=== PATIENT | female | born 1970 | race Caucasian/White ===

== ENCOUNTER 2019-10-07 04:24 | Emergency (ER) | payer OTHER ==
[2019-10-07] MEDS ORDERED: ONDANSETRON ODT 8 MG TAB SL ONE (04:34)
[2019-10-07] MEDS ORDERED: ALUM & MAG HYDROX-SIMETHICONE 30 ML, LIDOCAINE VISCOUS 2% 15 ML PO ONE ×4 (04:34→07:11)
[2019-10-07] MEDS ORDERED: MORPHINE SULFATE INJ 10 MG/ML VIAL IM ONE (04:34)
[2019-10-07] MEDS ORDERED: SODIUM CHLORIDE 0.9% 1000ML 1,000 ML IVS ONE ×3 (04:39→06:50)
[2019-10-07] MEDS ORDERED: ALUM & MAG HYDROX-SIMETHICONE 30 ML UD ONE ×2 (04:40→07:17)
[2019-10-07] MEDS ORDERED: LIDOCAINE HCL 2% (MOUTH-THROAT) 15 ML UD ONE ×2 (04:40→07:17)
--- NOTE | 2019-10-07 04:44 | ED.PDOC ---
History of Present Illness - General Source: patient Exam Limitations: no limitations - History of Present Illness Initial Comments: The patient is a 49-year-old female presenting to the emergency room with her secondary to severe abdominal pain primarily in the epigastric region that started around 1 AM. She reports that she has had about 20 episodes of diarrhea since the onset. The patient did take antibiotics about 3 weeks ago for dental infection. Mild diarrhea earlier in the day. She no longer has an appendix and she had a tubal in the past. She has not had a hysterectomy though she reports that she has gone through menopause. No syncope or near syncope. She did have some nausea but no vomiting. No definite fevers. She reports that the pain is similar in severity to the ruptured appendix and the ectopic . Vital signs are stable. She denies any allergies. Pain is colicky in nature and she does have a difficult time remaining still. No definite history of any large kidney stones. No urinary symptoms. The patient is quickly being dosed with a dose of IM morphine followed by sublingual Zofran, a GI cocktail and then a liter of normal saline. Laboratory work including a urinalysis, hCG and C. difficile are being performed. Acute abdominal series will be started with. We will have a low threshold for obtaining a CT scan but I would like her renal function back prior. Again vital signs are stable. No history of blood thinner usage. Timing/Duration: other - 3-1/2 hours Severity: severe Improving Factors: nothing Worsening Factors: nothing Associated Symptoms: diaphoresis, loss of appetite, malaise, nausea/vomiting <Zhang Bruce - Last Filed: 10/07/19 06:44> <Logan Michelle - Last Filed: 10/07/19 09:09> - General Chief Complaint: Abdominal Pain Stated Complaint: mid abdomen pain Time Seen by Provider: 10/07/19 04:27 - History of Present Illness Allergies/Adverse Reactions: Allergies NO KNOWN ALLERGY Allergy (Verified 10/07/19 04:40) Home Medications: Ambulatory Orders Aluminum & Magnesium Hydroxide [Maalox] 15 ml PO Q6HRS PRN #100 ml 10/07/19 Amitriptyline HCl 10/07/19 Celecoxib [Celebrex] 50 mg PO 10/07/19 Cyclobenzaprine HCl [Flexeril] 10 mg PO 10/07/19 Dicyclomine HCl [Bentyl] 20 mg PO Q8HRS PRN #30 tab 10/07/19 Estrogen Patch 10/07/19 Lidocaine Viscous 2% [Xylocaine Viscous 2%] 2 % PO Q8HRS PRN #100 ml 10/07/19 Omeprazole Magnesium [Prilosec Otc] 20 mg PO 10/07/19 Ondansetron Tab [Zofran Tab] 4 mg PO Q8HRS PRN #12 tab 10/07/19 Tramadol HCl 50 mg PO 10/07/19 metroNIDAZOLE [Flagyl] 500 mg PO Q8H 7 Days #21 tab 10/07/19 Review of Systems - Review of Systems Constitutional: States: malaise EENTM: States: no symptoms reported Respiratory: States: no symptoms reported Cardiology: States: no symptoms reported Gastrointestinal/Abdominal: States: abdominal pain, diarrhea, nausea Genitourinary: States: no symptoms reported Musculoskeletal: States: no symptoms reported Skin: States: no symptoms reported Neurological: States: no symptoms reported Endocrine: States: no symptoms reported All other Systems: No Change from Baseline <Zhang Bruce - Last Filed: 10/07/19 06:44> Family Medical History - Family History Mother Family History: Unknown <Zhang Bruce - Last Filed: 10/07/19 06:44> Physical Exam - Physical Exam General Appearance: Alert, Obvious distress Eye Exam: bilateral normal Ears, Nose, Throat: hearing grossly normal, normal ENT inspection Neck: full range of motion, supple Respiratory: lungs clear, normal breath sounds, no respiratory distress, no accessory muscle use Cardiovascular/Chest: normal peripheral pulses, regular rate, rhythm, no edema Peripheral Pulses: radial,right: 2+, radial,left: 2+, dorsalis pedis,right: 2+, dorsalis pedis,left: 2+ Gastrointestinal/Abdominal: soft, other - Primarily epigastric discomfort to palpation. No significant pain elsewhere. No definite palpable mass. Rectal Exam: deferred Back Exam: no CVA tenderness, no vertebral tenderness Extremity: non-tender, normal inspection, no pedal edema, no calf tenderness, normal capillary refill Neurologic: compressor repairer II-XII nml as tested, alert, normal mood/affect - The patient is in obvious distress, oriented x 3 Skin Exam: diaphoresis Comments: Vital Signs - 24 hr 10/07/19 04:29 Temperature 98.3 F Pulse Rate [ 89 monitor] Respiratory 20 Rate Blood Pressure 140/82 [Left Arm] O2 Sat by Pulse 100 Oximetry <TeoZhang Pantoja - Last Filed: 10/07/19 06:44> Progress - Progress Progress: 10/07/19 06:48 The patient is a 49-year-old female presenting to the emergency room secondary to fairly abrupt onset significant diarrhea and severe abdominal pain more in the upper central abdomen. She has required 2 doses of morphine. She has not thrown up. Laboratory work shows only a very mild leukocytosis but a significant left shift. She does have a mildly elevated lactic acidosis and has received a liter of IV fluids and will be receiving a second. Urinalysis is still pending at this time as is a C. difficile test on the stool. Stool culture is being set up. CT scan shows some mild thickening of distal loops of small bowel consistent with infectious or inflammatory cause. The patient will be receiving a dose of metronidazole empirically until the above 2 tests are returned. Patient will be handed off to oncoming ER doctor. zhang bruce [phone] - Results/Orders Results/Orders: Laboratory Tests 10/07/19 10/07/19 10/07/19 04:50 04:50 04:50 WBC 9.4 RBC 4.74 Hgb 15.3 Hct 43.9 MCV 92.6 MCH 32.2 H MCHC 34.8 RDW 13.1 Plt Count 227 MPV 7.0 L Absolute Neuts (auto) 8.60 H Absolute Lymphs (auto) 0.40 L Absolute Monos (auto) 0.40 Absolute Eos (auto) 0.00 Absolute Basos (auto) 0.00 Neutrophils % 91.1 H Lymphocytes % 4.2 L Monocytes % 4.2 Eosinophils % 0.3 L Basophils % 0.2 PT INR PTT (SP) D-Dimer, Quantitative Sodium 139 Potassium 4.1 Chloride 101 Carbon Dioxide 29 Anion Gap 13.1 BUN 13 Creatinine 0.82 BUN/Creatinine Ratio 15.9 Random Glucose 121 H Serum Osmolality 278.9 Lactic Acid 2.4 H* Calcium 9.7 Magnesium 1.6 L Total Bilirubin 0.8 AST 23 ALT 26 Alkaline Phosphatase 81 Creatine Kinase 88 CK-MB (CK-2) 2.2 CK-MB (CK-2) % Not Reportable Troponin I < 0.02 B-Natriuretic Peptide 6.0 Serum Total Protein 7.7 Albumin 4.4 Globulin 3.3 Albumin/Globulin Ratio 1.3 Amylase 50 Lipase 39 Serum HCG, Qual 10/07/19 10/07/19 10/07/19 04:50 04:50 04:50 WBC RBC Hgb Hct MCV MCH MCHC RDW Plt Count MPV Absolute Neuts (auto) Absolute Lymphs (auto) Absolute Monos (auto) Absolute Eos (auto) Absolute Basos (auto) Neutrophils % Lymphocytes % Monocytes % Eosinophils % Basophils % PT 9.7 INR < 1.00 PTT (SP) 20.4 L D-Dimer, Quantitative 542 H Sodium Potassium Chloride Carbon Dioxide Anion Gap BUN Creatinine BUN/Creatinine Ratio Random Glucose Serum Osmolality Lactic Acid Calcium Magnesium Total Bilirubin AST ALT Alkaline Phosphatase Creatine Kinase CK-MB (CK-2) CK-MB (CK-2) % Troponin I B-Natriuretic Peptide Serum Total Protein Albumin Globulin Albumin/Globulin Ratio Amylase Lipase Serum HCG, Qual Negative CT scan of abdomen pelvis shows thickening of a few loops of small bowel consistent with infectious or inflammatory etiology. See full report for details. <Zhang Bruce L - Last Filed: 10/07/19 06:44> - Progress Progress: I, Logan Michelle DO, have taken over care of pt. I have reviewed her chart, laboratory findings, radiology results, and all pertinent information. [id number] 10/07/19 07:17 Rechecked pt with spouse at beside. VSS with improved heart rate of 105, hemodynamically stable, and still with mild discomfort. I will give more morphine, repeat GI cocktail, and have IM Bentyl administered. Pt informs she has had over 20 episodes of watery diarrhea but denies blood or mucous in stool. Spouse states he has smelt C.diff before and her diarrhea did not smell like C.diff and was not foul. She informs her nausea has completely resolved. I have discussed resulted laboratory findings, radiology read results, and current clinical impression. Pt and spouse voice understanding and agree with current plan of d/c home vs observation admission based on following response in ED. All questions answered. 10/07/19 08:13 Rechecked pt. VSS, NAD, and pt is feeling much better. Nausea remains resolved and pain is now 4/10 compared with 10/10 upon arrival. Will monitor pt a little longer to ensure adequate pain control for discharge home and allow 3rd liter of NS to finish running. Pt agrees with plan and prefers d/c home over admission. D-dimer result correlated with HPI and clinical findings is not concerning for dissection, thromboembolism, and/or DIC. 10/07/19 08:30 Rechecked pt with spouse at bedside. NAD, VSS, and pain remains greatly improved and she is continuing to feel better. She prefers to go home at this time. I have discussed my clinical impression, diagnosis, and all pertinent laboratory a nd radiology read results. I have discussed plan for discharge home along with prescribed medications, follow up, and education. ED return precautions provided. Pt and spouse voice understanding, agree with plan, and all questions answered. - Results/Orders Results/Orders: 10/07/19 06:02 Hold Metformin x 48Hrs [id number] 10/07/19 06:25 CLOSTRIDIUM DIFFICILE AG/TOXIN Stat - Pt unable to provide stool sample. 10/07/19 06:47 STOOL CULTURE Stat - Pt unable to provide stool sample. Laboratory Results - last 24 hr 10/07/19 10/07/19 10/07/19 04:50 04:50 04:50 WBC 9.4 RBC 4.74 Hgb 15.3 Hct 43.9 MCV 92.6 MCH 32.2 H MCHC 34.8 RDW 13.1 Plt Count 227 MPV 7.0 L Absolute Neuts (auto) 8.60 H Absolute Lymphs (auto) 0.40 L Absolute Monos (auto) 0.40 Absolute Eos (auto) 0.00 Absolute Basos (auto) 0.00 Neutrophils % 91.1 H Lymphocytes % 4.2 L Monocytes % 4.2 Eosinophils % 0.3 L Basophils % 0.2 PT INR PTT (SP) D-Dimer, Quantitative Sodium 139 Potassium 4.1 Chloride 101 Carbon Dioxide 29 Anion Gap 13.1 BUN 13 Creatinine 0.82 BUN/Creatinine Ratio 15.9 Random Glucose 121 H Serum Osmolality 278.9 Lactic Acid 2.4 H* Calcium 9.7 Magnesium 1.6 L Total Bilirubin 0.8 AST 23 ALT 26 Alkaline Phosphatase 81 Creatine Kinase 88 CK-MB (CK-2) 2.2 CK-MB (CK-2) % Not Reportable Troponin I < 0.02 B-Natriuretic Peptide 6.0 Serum Total Protein 7.7 Albumin 4.4 Globulin 3.3 Albumin/Globulin Ratio 1.3 Amylase 50 Lipase 39 Serum HCG, Qual Urine Color Urine Appearance Urine pH Ur Specific Draper Urine Protein Urine Glucose (UA) Urine Ketones Urine Blood Urine Nitrite Urine Bilirubin Urine Urobilinogen Ur Leukocyte Esterase Urine RBC Urine WBC Ur Epithelial Cells Calcium Oxalate Crystal Amorphous Sediment Urine Bacteria Urine Mucus 10/07/19 10/07/19 10/07/19 04:50 04:50 04:50 WBC RBC Hgb Hct MCV MCH MCHC RDW Plt Count MPV Absolute Neuts (auto) Absolute Lymphs (auto) Absolute Monos (auto) Absolute Eos (auto) Absolute Basos (auto) Neutrophils % Lymphocytes % Monocytes % Eosinophils % Basophils % PT 9.7 INR < 1.00 PTT (SP) 20.4 L D-Dimer, Quantitative 542 H Sodium Potassium Chloride Carbon Dioxide Anion Gap BUN Creatinine BUN/Creatinine Ratio Random Glucose Serum Osmolality Lactic Acid Calcium Magnesium Total Bilirubin AST ALT Alkaline Phosphatase Creatine Kinase CK-MB (CK-2) CK-MB (CK-2) % Troponin I B-Natriuretic Peptide Serum Total Protein Albumin Globulin Albumin/Globulin Ratio Amylase Lipase Serum HCG, Qual Negative Urine Color Urine Appearance Urine pH Ur Specific Draper Urine Protein Urine Glucose (UA) Urine Ketones Urine Blood Urine Nitrite Urine Bilirubin Urine Urobilinogen Ur Leukocyte Esterase Urine RBC Urine WBC Ur Epithelial Cells Calcium Oxalate Crystal Amorphous Sediment Urine Bacteria Urine Mucus 10/07/19 06:30 WBC RBC Hgb Hct MCV MCH MCHC RDW Plt Count MPV Absolute Neuts (auto) Absolute Lymphs (auto) Absolute Monos (auto) Absolute Eos (auto) Absolute Basos (auto) Neutrophils % Lymphocytes % Monocytes % Eosinophils % Basophils % PT INR PTT (SP) D-Dimer, Quantitative Sodium Potassium Chloride Carbon Dioxide Anion Gap BUN Creatinine BUN/Creatinine Ratio Random Glucose Serum Osmolality Lactic Acid Calcium Magnesium Total Bilirubin AST ALT Alkaline Phosphatase Creatine Kinase CK-MB (CK-2) CK-MB (CK-2) % Troponin I B-Natriuretic Peptide Serum Total Protein Albumin Globulin Albumin/Globulin Ratio Amylase Lipase Serum HCG, Qual Urine Color Yellow Urine Appearance Sl cloudy Urine pH 5.5 Ur Specific Draper 1.025 Urine Protein Negative Urine Glucose (UA) Negative Urine Ketones Negative Urine Blood Negative Urine Nitrite Negative Urine Bilirubin Negative Urine Urobilinogen 0.2 Ur Leukocyte Esterase Trace H Urine RBC 1-3 Urine WBC 1-3 Ur Epithelial Cells 5-10 Calcium Oxalate Crystal 1+ Amorphous Sediment 1+ Urine Bacteria 2+ H Urine Mucus Small Acute abdominal series on 10/07/2019 CLINICAL INDICATION: Epigastric pain, diarrhea COMPARISON: None FINDINGS: CHEST: There is elevation of the right hemidiaphragm. The lungs are clear. Cardiac, hilar and mediastinal contours are within normal limits. Pulmonary vascularity is within normal limits. ABDOMEN: There is no free air. Postsurgical changes are noted in the lower lumbar spine. Bowel gas pattern is nonspecific. High density material is noted in the stomach. No increased stool to suggest constipation is noted. IMPRESSION: 1. No acute cardiopulmonary disease. 2. Nonspecific abdomen. Electronically signed by: Bret Nobles 10/07/2019 5:03 AM CDT EXAM: CT Abdomen and Pelvis With Intravenous Contrast CLINICAL HISTORY: The patient is 49 years old and is Female; severe upper abd pain with diarrhea, abrupt onset TECHNIQUE: Axial computed tomography images of the abdomen and pelvis with intravenous contrast. Sagittal and coronal reformatted images were created and reviewed. This CT exam was performed using one or more of the following dose reduction techniques: automated exposure control, adjustment of the mA and/or kV according to patient size, and/or use of iterative reconstruction technique. COMPARISON: Abdominal radiographs from 10/07/2019 FINDINGS: LUNG BASES: There is minimal subsegmental atelectasis in the lung bases. There are small left lower lobe pulmonary nodules measuring up to 3 x 3 mm (series 2, image 8). No follow-up imaging indicated due to the small size of the nodules. ABDOMEN: LIVER: Unremarkable. No obvious mass. GALLBLADDER AND BILE DUCTS: Unremarkable. No calcified stones. No significant biliary ductal dilatation. PANCREAS: Unremarkable. No ductal dilation. No obvious mass. SPLEEN: Unremarkable. No splenomegaly. ADRENALS: Unremarkable. No adrenal nodules or masses identified. KIDNEYS AND URETERS: Unremarkable. No solid mass. No hydronephrosis. STOMACH AND BOWEL: There is apparent mild wall thickening of a few distal loops of small bowel. No bowel obstruction visualized. PELVIS: APPENDIX: No findings to suggest acute appendicitis. BLADDER: Unremarkable. No obvious mass. REPRODUCTIVE: Unremarkable as visualized. ABDOMEN and PELVIS: INTRAPERITONEAL SPACE: Unremarkable. No free air. No significant fluid collection. BONES/JOINTS: The patient is status post lumbar interbody fusion at L4-5 and L5-S1, with bilateral posterior spinal rods in place at these levels. No acute fracture visualized. No dislocation. SOFT TISSUES: No significant abnormalities in the superficial soft tissues. VASCULATURE: Unremarkable. No abdominal aortic aneurysm. LYMPH NODES: No significant lymph node enlargement. IMPRESSION: Mild wall thickening of a few distal loops of small bowel, suggesting infectious or inflammatory enteritis. Electronically signed by: Antonina So MD 10/07/2019 6:38 AM CDT <Logan Michelle - Last Filed: 10/07/19 09:09> Departure <Zhang Bruce - Last Filed: 10/07/19 06:44> - Departure Time of Disposition: 08:32 Diet: bland diet Comments: Logan Michelle DO [facility][id number] <Logan Michelle - Last Filed: 10/07/19 09:09> - Departure Clinical Impression: Enteritis Disposition: Discharge to Home or Self Care Condition: Excellent Departure Forms: ED Discharge - Pt. Copy, Patient Portal Self Enrollment Instructions: DI for Abdominal Pain-Adult, Viral Gastroenteritis, Diarrhea in Adolescents and Adults Referrals: Your, Primary Care Physician [Other] - 1-2 Weeks (Follow up with our primary care physician in 5-7 days. Return to ED if your symptoms do not improve or you develope: inability to keep medications down, persistent diarrhea leading to dehydration you can't keep up with, fevers, shortness of breath, and/or any other symptoms concerning to you.) Prescriptions: Aluminum & Magnesium Hydroxide [Maalox] 15 ml PO Q6HRS PRN #100 ml PRN Reason: Abdominal Distress Dicyclomine HCl [Bentyl] 20 mg PO Q8HRS PRN #30 tab PRN Reason: Abdominal Distress Lidocaine Viscous 2% [Xylocaine Viscous 2%] 2 % PO Q8HRS PRN #100 ml PRN Reason: Abdominal Distress Ondansetron Tab [Zofran Tab] 4 mg PO Q8HRS PRN #12 tab PRN Reason: Nausea/Vomiting metroNIDAZOLE [Flagyl] 500 mg PO Q8H 7 Days #21 tab Home Medications: Ambulatory Orders Aluminum & Magnesium Hydroxide [Maalox] 15 ml PO Q6HRS PRN #100 ml 10/07/19 Amitriptyline HCl 10/07/19 Celecoxib [Celebrex] 50 mg PO 10/07/19 Cyclobenzaprine HCl [Flexeril] 10 mg PO 10/07/19 Dicyclomine HCl [Bentyl] 20 mg PO Q8HRS PRN #30 tab 10/07/19 Estrogen Patch 10/07/19 Lidocaine Viscous 2% [Xylocaine Viscous 2%] 2 % PO Q8HRS PRN #100 ml 10/07/19 Omeprazole Magnesium [Prilosec Otc] 20 mg PO 10/07/19 Ondansetron Tab [Zofran Tab] 4 mg PO Q8HRS PRN #12 tab 10/07/19 Tramadol HCl 50 mg PO 10/07/19 metroNIDAZOLE [Flagyl] 500 mg PO Q8H 7 Days #21 tab 10/07/19 Addendum entered and electronically signed by Logan Michelle DO 10/07/19 09:22: Departure - Departure Clinical Impression: Enteritis Disposition: Discharge to Home or Self Care Condition: Excellent Departure Forms: ED Discharge - Pt. Copy, Patient Portal Self Enrollment Instructions: DI for Abdominal Pain-Adult, Diarrhea in Adolescents and Adults, Viral Gastroenteritis Referrals: Your, Primary Care Physician [Other] - 1-2 Weeks (Follow up with our primary care physician in 5-7 days. Return to ED if your symptoms do not improve or you develope: inability to keep medications down, persistent diarrhea leading to dehydration you can't keep up with, fevers, shortness of breath, and/or any other symptoms concerning to you.) Prescriptions: Aluminum & Magnesium Hydroxide [Maalox] 15 ml PO Q6HRS PRN #100 ml PRN Reason: Abdominal Distress Dicyclomine HCl [Bentyl] 20 mg PO Q8HRS PRN #30 tab PRN Reason: Abdominal Distress Lidocaine Viscous 2% [Xylocaine Viscous 2%] 2 % PO Q8HRS PRN #100 ml PRN Reason: Abdominal Distress Ondansetron Tab [Zofran Tab] 4 mg PO Q8HRS PRN #12 tab PRN Reason: Nausea/Vomiting metroNIDAZOLE [Flagyl] 500 mg PO Q8H 7 Days #21 tab Home Medications: Ambulatory Orders Aluminum & Magnesium Hydroxide [Maalox] 15 ml PO Q6HRS PRN #100 ml 10/07/19 Amitriptyline HCl 10/07/19 Celecoxib [Celebrex] 50 mg PO 10/07/19 Cyclobenzaprine HCl [Flexeril] 10 mg PO 10/07/19 Dicyclomine HCl [Bentyl] 20 mg PO Q8HRS PRN #30 tab 10/07/19 Estrogen Patch 10/07/19 Lidocaine Viscous 2% [Xylocaine Viscous 2%] 2 % PO Q8HRS PRN #100 ml 10/07/19 Omeprazole Magnesium [Prilosec Otc] 20 mg PO 10/07/19 Ondansetron Tab [Zofran Tab] 4 mg PO Q8HRS PRN #12 tab 10/07/19 Tramadol HCl 50 mg PO 10/07/19 metroNIDAZOLE [Flagyl] 500 mg PO Q8H 7 Days #21 tab 10/07/19 Comments: Initial lactic acid elevation secondary to hemoconcentration and dehydration. No other signs of sepsis as pt is afebrile, with improved heart rate (improved secondary to rehydration and pain control), and no WBC elevation despite hemoconcentration. Clinically I am not concerned for sepsis. Pt is very well appearing and without distress. Hemodynamically isaac. Pt will benefit from trial of outpatient treatment with PCP followup over inpatient observation.
--- NOTE | 2019-10-07 05:05 | RAD ---
Acute abdominal series on 10/07/2019 CLINICAL INDICATION: Epigastric pain, diarrhea COMPARISON: None FINDINGS: CHEST: There is elevation of the right hemidiaphragm. The lungs are clear. Cardiac, hilar and mediastinal contours are within normal limits. Pulmonary vascularity is within normal limits. ABDOMEN: There is no free air. Postsurgical changes are noted in the lower lumbar spine. Bowel gas pattern is nonspecific. High density material is noted in the stomach. No increased stool to suggest constipation is noted. IMPRESSION: 1. No acute cardiopulmonary disease. 2. Nonspecific abdomen. Electronically signed by: Bret Nobles 10/07/2019 5:03 AM CDT
[2019-10-07] MEDS ORDERED: MAGNESIUM SULFATE PREMIX 2GM 2 GM in PREMIX BAG 1 BAG IVPB ONE (06:36)
--- NOTE | 2019-10-07 06:40 | CT ---
EXAM: CT Abdomen and Pelvis With Intravenous Contrast CLINICAL HISTORY: The patient is 49 years old and is Female; severe upper abd pain with diarrhea, abrupt onset TECHNIQUE: Axial computed tomography images of the abdomen and pelvis with intravenous contrast. Sagittal and coronal reformatted images were created and reviewed. This CT exam was performed using one or more of the following dose reduction techniques: automated exposure control, adjustment of the mA and/or kV according to patient size, and/or use of iterative reconstruction technique. COMPARISON: Abdominal radiographs from 10/07/2019 FINDINGS: LUNG BASES: There is minimal subsegmental atelectasis in the lung bases. There are small left lower lobe pulmonary nodules measuring up to 3 x 3 mm (series 2, image 8). No follow-up imaging indicated due to the small size of the nodules. ABDOMEN: LIVER: Unremarkable. No obvious mass. GALLBLADDER AND BILE DUCTS: Unremarkable. No calcified stones. No significant biliary ductal dilatation. PANCREAS: Unremarkable. No ductal dilation. No obvious mass. SPLEEN: Unremarkable. No splenomegaly. ADRENALS: Unremarkable. No adrenal nodules or masses identified. KIDNEYS AND URETERS: Unremarkable. No solid mass. No hydronephrosis. STOMACH AND BOWEL: There is apparent mild wall thickening of a few distal loops of small bowel. No bowel obstruction visualized. PELVIS: APPENDIX: No findings to suggest acute appendicitis. BLADDER: Unremarkable. No obvious mass. REPRODUCTIVE: Unremarkable as visualized. ABDOMEN and PELVIS: INTRAPERITONEAL SPACE: Unremarkable. No free air. No significant fluid collection. BONES/JOINTS: The patient is status post lumbar interbody fusion at L4-5 and L5-S1, with bilateral posterior spinal rods in place at these levels. No acute fracture visualized. No dislocation. SOFT TISSUES: No significant abnormalities in the superficial soft tissues. VASCULATURE: Unremarkable. No abdominal aortic aneurysm. LYMPH NODES: No significant lymph node enlargement. IMPRESSION: Mild wall thickening of a few distal loops of small bowel, suggesting infectious or inflammatory enteritis. Electronically signed by: Antonina So MD 10/07/2019 6:38 AM CDT
[2019-10-07] MEDS ORDERED: MAGNESIUM SULFATE PREMIX 2GM 50 ML IVPB ONE (06:41)
[2019-10-07] MEDS ORDERED: MORPHINE SULFATE INJ 10 MG/ML VIAL ONE (06:42)
[2019-10-07] MEDS ORDERED: MORPHINE SULFATE INJ 10 MG/ML VIAL IV ONE ×2 (06:47→07:11)
[2019-10-07] MEDS ORDERED: metroNIDAZOLE IV PREMIX 500MG 500 MG in PREMIX BAG 1 BAG IVPB ONE (06:50)
[2019-10-07] MEDS ORDERED: DICYCLOMINE HCL INJ 20 MG/2 ML AMP IM ONE (07:11)
[2019-10-07] MEDS ORDERED: metroNIDAZOLE IV PREMIX 500MG 100 ML IVPB ONE (08:05)
[2019-10-07 10:04] VITALS: BP 121/82; TEMP 98.9; O2SAT 94
== END 2019-10-07 09:58 | disposition home or self-care (01) ==
LOC: ER 04:24
DX: K52.9 Noninfective gastroenteritis and colitis, unspecified (principal); Z90.49 Acquired absence of other specified parts of digestive tract
CPT/HCPCS: 36415; 74019; 74177; 80053; 81001; 82150; 82550; 82553; 83605; 83690; 83735; 83880; 84484; 84703; 85025; 85379; 85610; 85730; J0500; J2270; J3475; J3490; J7030

== ENCOUNTER → 2020-08-26 | Outpatient (CLI) | payer BC | LOC: GMAL 14:18 | PROVIDERS: ATTEND Family Medicine | DX: E53.8 Deficiency of other specified B group vitamins (principal); R53.83 Other fatigue; E83.51 Hypocalcemia ==